=== PATIENT | male | born 1975 | race Two or more races ===

== ENCOUNTER 2017-07-26 11:29 | Observation (INO) | payer MEDICAID ==
[~2017-07-26] VITALS: Ht 172.7 cm; Wt 77.1 kg
[2017-07-26 11:39] VITALS: BP 110/63
[2017-07-26 12:18] LABS: Basophils # (auto) 0.2 uL; Basophils % (auto) 2.3 % (0.0-2.0); Eosinophils # (auto) 0.1 uL; Eosinophils % (auto) 1.4 % (0.0-7.0); Hematocrit 49.4 % (41.0-53.0); Hemoglobin 16.6 g/dL (13.5-17.5); Lymphocytes # (auto) 0.5 uL; Lymphocytes % (auto) 5.3 % (10.0-50.0); Mean Corpuscular Hemoglobin 30.2 pg (28.0-32.0); Mean Corpuscular Hgb Conc. 33.5 g/dL (32.0-36.0); Monocytes # (auto) 0.5 uL; Monocytes % (auto) 4.8 % (0.0-12.0); Neutrophils # (auto) 8.4 uL; Neutrophils % (auto) 86.2 % (37.0-80.0); Platelet Count (auto) 239 10^3/uL (140-450); Red Blood Cells 5.48 10^6/uL (4.5-5.90); Red Cell Distribution Width 13.7 % (11.8-14.3); White Blood Cell 9.7 10^3/uL (4.4-10.8)
[2017-07-26 12:35] LABS: Alanine Aminotransferase 25 U/L (16-61); Albumin 3.5 g/dL (3.4-5.0); Anion Gap 8 (5-15); Aspartate Aminotransferase 10 U/L (15-37); Blood Urea Nitrogen 16 mg/dL (7-18); Carbon Dioxide 27 mmol/L (21-32); Chloride 107 mmol/L (98-107); GFR African American 83 mL/min; GFR Non-African American 69 mL/min; Glucose 98 mg/dL (74-106); Potassium 4.1 mmol/L (3.5-5.1); Sodium 142 mmol/L (136-145)
[2017-07-26 12:40] LABS: Alkaline Phosphatase 105 U/L (45-117); Bilirubin, Total 0.8 mg/dL (0.2-1.0); Total Protein 7.2 g/dL (6.4-8.2)
[2017-07-26 12:47] LABS: Urine Bacteria NONE SEEN /hpf (None Seen); Urine Blood Negative /uL (Negative); Urine Mucus FEW (None Seen); Urine Specific Gravity 1.034 (1.001-1.035); Urine WBC <1 /hpf (0 - 3)
[2017-07-26] MEDS ORDERED: ASPirin 81 mg TAB PO ONE (13:00)
[2017-07-26 13:07] LABS: Alcohol, Urine < 3.0 mg/dL (0-5); Amphetamine Screen, Urine POSITIVE (NEGATIVE); Barbiturate Scree,Urine NEGATIVE (NEGATIVE); Benzodiazephine Screen, Urine NEGATIVE (NEGATIVE); Cannabinoid Screen, Urine NEGATIVE (NEGATIVE); Cocaine Screen, Urine NEGATIVE (NEGATIVE); Opiate Scree,Urine NEGATIVE (NEGATIVE); Phencyclidine Screen, Urine NEGATIVE (NEGATIVE)
[2017-07-26] MEDS ORDERED: PANTOPRAZOLE 40 MG TAB PO ONE (13:30)
[2017-07-26 13:47] LABS: INR 0.96 (0.9-1.15); Partial Thromboplastin Time 30.1 sec (23.78-33.04); Prothrombin Time 10.3 sec (9.27-12.13)
== END 2017-07-26 17:04 | disposition home or self-care (01) | DRG 241 ==
LOC: ER 11:29 → OVERFLOW 11:30 → ER 17:04
PROVIDERS: ADMIT Family Medicine; ATTEND Family Medicine
DX: K29.70 Gastritis, unspecified, without bleeding (principal); F17.210 Nicotine dependence, cigarettes, uncomplicated; Z82.49 Family history of ischemic heart disease and other diseases of the circulatory system
CPT/HCPCS: 36415; 71046; 80053; 80307; 81001; 84443; 84484; 85025; 85379; 85610; 85730; 93005; 99285; G0378

== ENCOUNTER 2021-04-24 22:36 | Emergency (ER) | payer MEDICAID ==
[~2021-04-24] VITALS: Ht 175.3 cm; Wt 84.4 kg
[2021-04-24 22:37] VITALS: BP 118/72
[2021-04-24] MEDS ORDERED: CIPR500T4 PO (23:09)
[2021-04-24] MEDS ORDERED: TETANUS-DIPTH-ACEL PERTUSSIS 0.5ML SYR Tdap IM ONE (23:15)
== END 2021-04-24 23:20 | disposition home or self-care (01) ==
LOC: ER 22:41
DX: S91.332A Puncture wound without foreign body, left foot, initial encounter (principal); F17.210 Nicotine dependence, cigarettes, uncomplicated; Z79.2 Long term (current) use of antibiotics; W45.0XXA Nail entering through skin, initial encounter; Y93.89 Activity, other specified; Y92.89 Other specified places as the place of occurrence of the external cause; Y99.8 Other external cause status
CPT/HCPCS: 90471; 90715

== ENCOUNTER 2021-10-16 21:19 | Emergency (ER) | payer MEDICAID, OTHER ==
[~2021-10-16] VITALS: Ht 175.3 cm; Wt 84.1 kg
[~2021-10-16 21:19] MED LIST: CIPR500T4 PO
[2021-10-16 21:34] VITALS: BP 123/76
== END 2021-10-16 23:48 | disposition home or self-care (01) ==
LOC: ER 21:20
DX: M54.2 Cervicalgia (principal); F17.210 Nicotine dependence, cigarettes, uncomplicated; Z79.2 Long term (current) use of antibiotics; V89.2XXA Person injured in unspecified motor-vehicle accident, traffic, initial encounter; Y93.89 Activity, other specified; Y92.410 Unspecified street and highway as the place of occurrence of the external cause; Y99.8 Other external cause status

== ENCOUNTER 2022-04-02 00:02 | Emergency (ER) | payer MEDICAID, OTHER ==
[2022-04-02] MEDS ORDERED: IBUP600T28 PO (06:24)
[2022-04-02] MEDS ORDERED: CEPH-510 PO (06:24)
[2022-04-02] MEDS ORDERED: BACDST PO (06:24)
== END 2022-04-02 01:12 | disposition left against medical advice (07) ==
LOC: ER 00:02
DX: M54.89 Other dorsalgia (principal); Z53.21 Procedure and treatment not carried out due to patient leaving prior to being seen by health care provider

== ENCOUNTER 2022-04-02 04:55 | Emergency (ER) | payer MEDICAID ==
[~2022-04-02] VITALS: Ht 172.7 cm; Wt 81.8 kg
[2022-04-02 05:32] VITALS: BP 125/74
[2022-04-02] MEDS ORDERED: BACDST PO (06:24)
[2022-04-02] MEDS ORDERED: IBUP600T28 PO (06:24)
[2022-04-02] MEDS ORDERED: CEPH-510 PO (06:24)
[2022-04-02] MEDS ORDERED: cefTRIAXone SOD 1,000 MG VL IM ONE (06:30)
== END 2022-04-02 06:41 | disposition home or self-care (01) ==
LOC: ER 04:55
DX: L03.317 Cellulitis of buttock (principal); F17.210 Nicotine dependence, cigarettes, uncomplicated; F12.90 Cannabis use, unspecified, uncomplicated
CPT/HCPCS: 96372; 99283; J0696

== ENCOUNTER 2022-07-22 00:04 | Emergency (ER) | payer MEDICAID ==
[~2022-07-22] VITALS: Ht 172.7 cm; Wt 95.5 kg
[~2022-07-22 00:04] MED LIST changes: +BACDST PO; +CEPH-510 PO; +IBUP1TAB5 PO
[2022-07-22 00:10] VITALS: BP 119/77
== END 2022-07-22 03:05 | disposition left against medical advice (07) ==
LOC: ER 00:04
DX: R51.9 Headache, unspecified (principal); Z53.21 Procedure and treatment not carried out due to patient leaving prior to being seen by health care provider

== ENCOUNTER 2022-07-23 06:59 | Emergency (ER) | payer MEDICAID ==
[~2022-07-23] VITALS: Ht 172.7 cm; Wt 81.0 kg
[2022-07-23 07:31] LABS: Urine Bacteria NONE SEEN /hpf (None Seen); Urine Blood Negative /uL (Negative); Urine Mucus FEW (None Seen); Urine Specific Gravity 1.044 (1.001-1.035); Urine WBC 1 /hpf (0 - 3)
[2022-07-23 07:51] LABS: Basophils # (auto) 0.2 10 ^3/uL (0-0.2); Basophils % (auto) 2.2 % (0.0-2.0); Eosinophils # (auto) 0.2 10 ^3/uL (0-0.8); Hematocrit 44.1 % (41.0-53.0); Hemoglobin 15.1 g/dL (13.5-17.5); Lymphocytes # (auto) 2.4 10 ^3/uL (0.4-5.4); Lymphocytes % (auto) 30.2 % (10.0-50.0); Mean Corpuscular Hemoglobin 30.1 pg (28.0-32.0); Mean Corpuscular Hgb Conc. 34.3 g/dL (32.0-36.0); Mean Corpuscular Volume 87.7 fL (80.0-100.0); Monocytes # (auto) 0.9 10 ^3/uL (0-1.3); Monocytes % (auto) 11.6 % (0.0-12.0); Neutrophils # (auto) 4.3 10 ^3/uL (1.6-8.6); Nucleated Red Blood Cells % 0.2 %; Red Blood Cells 5.03 10^6/uL (4.5-5.90); Red Cell Distribution Width 13.8 % (11.8-14.3); White Blood Cell 8.1 10^3/uL (4.4-10.8)
[2022-07-23 08:05] LABS: Albumin 3.9 g/dL (3.4-5.0); Calcium 8.4 mg/dL (8.5-10.1); Potassium 4.2 mmol/L (3.5-5.1)
[2022-07-23 08:08] LABS: BUN/Creatinine Ratio 23.5 (10.0-20.0); Bilirubin, Total 0.6 mg/dL (0.2-1.0); Total Protein 6.9 g/dL (6.4-8.2)
[2022-07-23 10:45] VITALS: BP 124/63
== END 2022-07-23 11:27 | disposition left against medical advice (07) ==
LOC: ER 06:59
DX: B34.9 Viral infection, unspecified (principal); F17.210 Nicotine dependence, cigarettes, uncomplicated; F12.90 Cannabis use, unspecified, uncomplicated; F15.90 Other stimulant use, unspecified, uncomplicated; Z79.899 Other long term (current) drug therapy
CPT/HCPCS: 36415; 71045; 80053; 81001; 83880; 84484; 85025; 93005

== ENCOUNTER 2022-07-30 00:16 | Emergency (ER) | payer MEDICAID ==
[~2022-07-30] VITALS: Ht 172.7 cm; Wt 82.0 kg
[2022-07-30 00:25] VITALS: BP 125/99
== END 2022-07-30 03:09 | disposition left against medical advice (07) ==
LOC: ER 00:16
DX: R21 Rash and other nonspecific skin eruption (principal); Z53.21 Procedure and treatment not carried out due to patient leaving prior to being seen by health care provider

== ENCOUNTER 2023-09-25 22:40 | Emergency (ER) | payer MEDICAID ==
[~2023-09-25] VITALS: Ht 172.7 cm; Wt 85.3 kg
[2023-09-25 22:43] VITALS: BP 126/87; PULSE 102; RESP 18; O2SAT 99
[2023-09-26] MEDS ORDERED: diphenhdrAMINE HCL 50 MG/1 ML VL ONE (15:04)
[2023-09-26] MEDS ORDERED: LIDOCAINE VISCOUS 2% 15ML UD ONE (15:04)
[2023-09-26] MEDS ORDERED: SODIUM CHLORIDE LOCK 0 ML ONE (15:04)
[2023-09-26] MEDS ORDERED: MIDAZOLAM HCL 5 MG/ML-1ML VIAL ONE (15:04)
[2023-09-26] MEDS ORDERED: fentaNYL CITRATE 100 MCG/2 ML VL ONE (15:05)
== END 2023-09-26 03:47 | disposition left against medical advice (07) ==
LOC: ER 22:40
DX: M79.602 Pain in left arm (principal); Z53.21 Procedure and treatment not carried out due to patient leaving prior to being seen by health care provider

== ENCOUNTER 2023-10-21 12:25 | Emergency (ER) | payer MEDICAID ==
[~2023-10-21] VITALS: Ht 177.8 cm; Wt 84.0 kg
[2023-10-21 12:33] VITALS: BP 118/74; PULSE 99; RESP 18; O2SAT 95
[2023-10-22] MEDS ORDERED: ERY05OO OP (00:23)
== END 2023-10-21 16:27 | disposition left against medical advice (07) ==
LOC: ER 12:25
DX: H57.12 Ocular pain, left eye (principal); Z53.21 Procedure and treatment not carried out due to patient leaving prior to being seen by health care provider

== ENCOUNTER 2023-10-21 23:23 | Emergency (ER) | payer MEDICAID ==
[~2023-10-21] VITALS: Ht 172.7 cm; Wt 85.2 kg
[2023-10-22] MEDS: FLUORESCEIN SOD OPTH TEST STRIP LEFTEYE ONE (00:15)
[2023-10-22] MEDS: TETRACAINE HCL 0.5% OPTH(EYE) SOLN 4ML LEFTEYE ONE (00:15)
[2023-10-22 00:21] VITALS: BP 130/79; PULSE 100; RESP 18; TEMP 99.5; O2SAT 98
[2023-10-22] MEDS ORDERED: ERY05OO OP (00:23)
== END 2023-10-22 00:42 | disposition home or self-care (01) ==
LOC: ER 23:23
DX: S05.02XA Injury of conjunctiva and corneal abrasion without foreign body, left eye, initial encounter (principal); F15.10 Other stimulant abuse, uncomplicated; F17.210 Nicotine dependence, cigarettes, uncomplicated; Z79.1 Long term (current) use of non-steroidal anti-inflammatories (NSAID); Z88.4 Allergy status to anesthetic agent; Z79.899 Other long term (current) drug therapy; X58.XXXA Exposure to other specified factors, initial encounter; Y93.89 Activity, other specified; Y92.89 Other specified places as the place of occurrence of the external cause; Y99.8 Other external cause status